=== PATIENT | male | born 1985 | race Caucasian/White ===

== ENCOUNTER 2017-01-17 15:40 | Emergency (ER) | payer OTHER ==
--- NOTE | 2017-01-17 15:45 | PDOC ---
History of Present Illness <Shirin Olivier - Last Filed: 01/17/17 16:58> - General History Source: Patient Exam Limitations: No Limitations - History of Present Illness Presenting Symptoms: Chest Pain Timing/Duration: reports: constant Severity/Quality: reports: mild Location: denies: shoulder, back Chest Pain Radiation: denies: no radiation Activities at Onset: reports: none <Alfredo Kevin - Last Filed: 01/17/17 17:17> - General Chief Complaint: Chest Pain Stated Complaint: CHEST PAIN Time Seen by Provider: 01/17/17 15:45 - History of Present Illness Initial Comments: 01/17/17 15:51 31 y/o male with chest pain while driving today on left side. No back pain, arm pain or neck pain. Patient takes medication for high blood pressure. No family hx of CAD. No fever or chills, no SOB. Chest pain is getting a little better. No fall, lifting or trauma. No diaphoresis. No N/V. Feels a little dizzy as well. (Alfredo Kevin) Past History <Shirin Olivier - Last Filed: 01/17/17 16:58> - Surgical History Abdominal Surgery: Yes (L INGUINAL HERNIA REPAIR) - Psycho/Social/Smoking Cessation Hx Suicidal Ideation: No Smoking History: Current every day smoker Number of Cigarettes Smoked Daily: 6 'Breaking Loose' booklet given: 05/27/16 Hx Alcohol Use: Yes Drug/Substance Use Hx: No Substance Use Type: None <Alfredo Kevin - Last Filed: 01/17/17 17:17> - Past Medical History Allergies/Adverse Reactions: Allergies Allergy/AdvReac Type Severity Reaction Status Date / Time Penicillins Allergy Severe Difficulty Verified 01/17/17 15:42 Breathing Home Medications: Ambulatory Orders Aspirin [Audi Chewable] 81 mg PO ONCE 05/27/16 Lisinopril [Prinivil] 10 mg PO DAILY #30 tablet 05/27/16 Review of Systems - Review of Systems Able to Perform ROS?: Yes Is the patient limited Italian proficient: No Constitutional: No: Chills, Diaphoresis Respiratory: No: Cough, Shortness of Breath Cardiac (ROS): Yes: Chest Pain, Lightheadedness. No: Edema ABD/GI: No: Abdominal Distended, Nausea, Vomiting Musculoskeletal: No: Back Pain, Joint Pain All Other Systems: Reviewed and Negative <Alfredo Kevin - Last Filed: 01/17/17 17:17> *Physical Exam - Physical Exam General Appearance: Yes: Nourished, Appropriately Dressed. No: Apparent Distress HEENT: positive: EOMI, JAZMINE, Normal ENT Inspection Neck: positive: Trachea midline, Supple. negative: Tender Respiratory/Chest: positive: Lungs Clear, Normal Breath Sounds. negative: Chest Tender, Respiratory Distress Cardiovascular: positive: Regular Rhythm, Regular Rate, S1, S2. negative: Edema , JVD, Murmur Vascular Pulses: Femoral (R): 4+, Femoral (L): 4+, Carotid (R): 4+, Carotid (L) : 4+, Dorsalis-Pedis (R): 4+, Doralis-Pedis (L): 4+ Gastrointestinal/Abdominal: positive: Normal Bowel Sounds, Soft. negative: Tender, Organomegaly, Pulsatile Mass Lymphatic: negative: Adenopathy, Tenderness, Other Musculoskeletal: positive: Normal Inspection. negative: CVA Tenderness Extremity: positive: Normal Capillary Refill, Normal Inspection, Normal Range of Motion. negative: Calf Tenderness Integumentary: positive: Normal Color, Dry, Warm Neurologic: positive: strainer tender II-XII NML intact, Fully Oriented, Alert, Normal Mood/ Affect, Normal Response, Motor Strength 5/5 <Alfredo Kevin - Last Filed: 01/17/17 17:17> - Vital Signs Last Vital Signs Temp Pulse Resp BP Pulse Ox 98 F 78 18 143/86 100 01/17/17 15:40 01/17/17 15:40 01/17/17 15:40 01/17/17 15:40 01/17/17 15:40 Heart Score/ECG Review <Shirin Olivier - Last Filed: 01/17/17 16:58> - History History: Slightly suspicious - Electrocardiogram EKG: Normal - Age Age: </= 47 - Risk Factors Risk Factors Heart Score: Yes Hx Hypertension Based on the list above the patient has:: 1-2 risk factors - Troponin Troponin: </= normal limit - Score Heart Score - Total: 1 - ECG Intrepretation Rhythm: Regular Rhythm - Brixey Brixey: Normal - ST and T Non Specific ST-T Wave changes: No - ECG Impressions Normal ECG: Yes Non-specific ST Elevation: No Ischemic Changes: No <Alfredo Kevin - Last Filed: 01/17/17 17:17> - ECG Intrepretation Comment:: 01/17/17 15:55 rate 77 (Alfredo Kevin) - ECG Impressions Comment:: 01/17/17 15:56 No STEMI seen (Alfredo Kevin) ED Treatment Course - LABORATORY CBC & Chemistry Diagram: 01/17/17 16:00 01/17/17 16:00 <Shirin Olivier - Last Filed: 01/17/17 16:58> - LABORATORY CBC & Chemistry Diagram: 01/17/17 16:00 01/17/17 16:00 <Alfredo Kevin - Last Filed: 01/17/17 17:17> - ADDITIONAL ORDERS Additional order review: Laboratory Results 01/17/17 01/17/17 16:00 16:00 Sodium 134 L Potassium 4.1 Chloride 101 Carbon Dioxide 25 Anion Gap 8 BUN 14 Creatinine 0.8 Creat Clearance w eGFR > 60 Random Glucose 96 Calcium 9.3 Total Bilirubin 0.7 AST 30 ALT 43 H D Alkaline Phosphatase 80 Creatine Kinase 378 H CK-MB (CK-2) 2.7 Cancelled CK-MB (CK-2) Rel Index 0.7 Troponin I < 0.03 L Total Protein 6.8 Albumin 4.4 01/17/17 16:00 RBC 5.55 MCV 83.5 MCHC 34.9 RDW 12.0 MPV 9.1 Neutrophils % 56.2 Lymphocytes % 32.4 Monocytes % 7.1 Eosinophils % 2.6 Basophils % 1.7 - RADIOLOGY Radiology Studies Ordered: Category Date Time Status CHEST X-RAY PORTABLE* [RAD] Stat Radiology 01/17/17 15:50 Taken Radiograph Interpretation: 01/17/17 16:58 Chest XR impression read by Dr. Kevin: No acute pathology (Shirin Olivier) - Medications Given in the ED: ED Medications Discontinued Medications Generic Name Dose Route Start Last Admin Trade Name Freq PRN Reason Stop Dose Admin Aspirin 324 mg 01/17/17 15:50 01/17/17 16:00 Asa - PO 01/17/17 15:51 324 mg ONCE ONE Administration Progress Note <Shirin Olivier - Last Filed: 01/17/17 16:58> <Alfredo Kevin - Last Filed: 01/17/17 17:17> - Progress Note Progress Note: CXR NAD EKG NSR no ST-T wave changes noted Pt states that he does not have any chest pain at this time, feeling better, pain free Troponin negative, CPK slightly elevated Upon further questioning pt was doing a lot of lifting and work before driving in car where he expirienced chest pain Pt wishes to go home, risks and benefits explained If worsen will return to ER (Alfredo Kevin) *DC/Admit/Observation/Transfer <Shirin Olivier - Last Filed: 01/17/17 16:58> - Discharge Dispostion Admit: No <Alfredo Kevin - Last Filed: 01/17/17 17:17> Diagnosis at time of Disposition: Atypical chest pain - Discharge Dispostion Disposition: HOME Condition at time of disposition: Stable - Referrals Referrals: Smith Cr MD [Staff Physician] - - Patient Instructions Printed Discharge Instructions: DI for Atypical Chest Pain Additional Instructions: Fluids, rest, Motrin Continue current medications Follow up with Litigation Paralegal If worsening pain in next 12 hrs return to ER - Attestations Scribe Attestion: 01/17/17 16:59 Documentation prepared by Shirin Olivier, acting as director biomedical engineering for Alfredo Kevin DO. (Shirin Olivier)
[2017-01-17] MEDS ORDERED: ASPIRIN 81 MG CHEWABLE TABLETS PO ONE (15:50)
[2017-01-17 15:51] VITALS: TEMP 98; BMI 33.7
[2017-01-17] MEDS ORDERED: ASPIRIN 81 MG CHEWABLE TABLETS ONE (16:02)
[2017-01-17 16:17] LABS: BASOPHIL 1.7 % (0-2.0); EOSINOPHIL 2.6 % (0-4.5); MCH 29.1 pg (25.7-33.7); MCHC 34.9 g/dl (32.0-35.9); MEAN CELL VOLUME 83.5 fl (80-96); MEAN PLT VOLUME 9.1 fl (7.5-11.1); NEUTROPHILS 56.2 % (42.8-82.8); PLATELET COUNT 216 K/MM3 (134-434); WHITE BLOOD COUNT 10.2 K/mm3 (4.0-10.8)
[2017-01-17 16:29] LABS: ALBUMIN 4.4 g/dl (3.5-5.0); ALK PHOS 80 U/L (32-92); ANION GAP 8 (8-16); BILIRUBIN,TOTAL 0.7 mg/dl (0.2-1.0); CALCIUM 9.3 mg/dl (8.4-10.2); CO2 25 mmol/L (22-28); CREATININE 0.8 mg/dl (0.6-1.3); GLUCOSE,RANDOM 96 mg/dl (74-106); SGOT/AST 30 U/L (10-42); SGPT/ALT 43 U/L (10-40); TOT PROT 6.8 g/dl (6.4-8.3)
[2017-01-17 16:30] LABS: CPK(DFH) 378 IU/L (38-174)
[2017-01-17 17:03] LABS: TROPONIN I (DFP) < 0.03 ng/ml (0.03-0.50)
[2017-01-17 17:07] LABS: CK MB 2.7 ng/ml (0.3-4.0)
[2017-01-17 17:31] VITALS: BP 127/84; PULSE 77
--- NOTE | 2017-01-18 14:14 | EKG ---
Test Reason : Blood Pressure : / mmHG Vent. Rate : 077 BPM Atrial Rate : 077 BPM P-R Int : 164 ms QRS Dur : 098 ms QT Int : 364 ms P-R-T Axes : 048 061 018 degrees QTc Int : 411 ms NORMAL SINUS RHYTHM NORMAL ECG NO PREVIOUS ECGS AVAILABLE Confirmed by EMELY MENDOZA MD ([id number]) on 01/18/2017 2:14:09 PM Referred By: FABIO Confirmed By:EMELY MENDOZA MD
== END 2017-01-17 17:25 | disposition home or self-care (01) ==
LOC: FER 15:40
DX: R07.89 Other chest pain (principal); I10 Essential (primary) hypertension; F17.210 Nicotine dependence, cigarettes, uncomplicated
CPT/HCPCS: 36415; 71010-TC; 80053; 82550; 82553; 84484; 85025; 93005; 99285-25

== ENCOUNTER 2017-10-09 14:03 | Emergency (ER) | payer OTHER ==
[2017-10-09 14:08] VITALS: TEMP 98.7; BMI 33.3
--- NOTE | 2017-10-09 14:20 | PDOC ---
History of Present Illness - General History Source: Patient Exam Limitations: No Limitations - History of Present Illness Initial Comments: 10/09/17 14:37 The patient is a 32 year old male with a significant past medical history of arthritis who presents to the ED with complaints of knee pain for 2 weeks. The patient reports he felt the back of his right knee tense up 2 weeks ago. He states he went to urgent care yesterday and was given pain medication with relief of his back of the knee pain. Patient states the pain in the back of his knee is now resolved but he developed pain to the front of his knee secondary to going up a flight of stairs yesterday evening. He states the pain in front of his right knee is worsened when walking. He also reports swelling and warmth to his right knee. Denies fever or chill. Denies focal numbness, weakness, or tingling. Denies any other symptoms. <Ortiz Alvarez - Last Filed: 10/09/17 14:37> <Denise Dyer - Last Filed: 10/10/17 08:11> - General Chief Complaint: Pain, Acute Stated Complaint: RIGHT KNEE PAIN Time Seen by Provider: 10/09/17 14:19 Past History <Ortiz Alvarez - Last Filed: 10/09/17 14:37> - Past Medical History COPD: No HTN: Yes - Surgical History Abdominal Surgery: Yes (L INGUINAL HERNIA REPAIR) - Suicide/Smoking/Psychosocial Hx Smoking History: Former smoker Have you smoked in the past 12 months: No Number of Cigarettes Smoked Daily: 6 If you are a former smoker, when did you quit?: 8 Information on smoking cessation initiated: No 'Breaking Loose' booklet given: 01/17/17 Hx Alcohol Use: No Drug/Substance Use Hx: No Substance Use Type: None <Denise Dyer - Last Filed: 10/10/17 08:11> - Past Medical History Allergies/Adverse Reactions: Allergies Allergy/AdvReac Type Severity Reaction Status Date / Time Penicillins Allergy Severe Difficulty Verified 10/09/17 14:04 Breathing Home Medications: Ambulatory Orders NK [No Known Home Medication] 10/09/17 Review of Systems - Review of Systems Able to Perform ROS?: Yes Comments:: 10/09/17 14:38 GENERAL/CONSTITUTIONAL: No fever or chills. No weakness. MUSCULOSKELETAL: + knee pain, knee swelling, warmth to the knee. No neck or back pain. SKIN: No rash All Other Systems: Reviewed and Negative <Ortiz Alvarez - Last Filed: 10/09/17 14:37> *Physical Exam - Vital Signs Last Vital Signs Temp Pulse Resp BP Pulse Ox 98.7 F 79 15 158/99 100 10/09/17 14:04 10/09/17 14:04 10/09/17 14:04 10/09/17 14:04 10/09/17 14:04 <Ortiz Alvarez - Last Filed: 10/09/17 14:37> - Vital Signs Last Vital Signs Temp Pulse Resp BP Pulse Ox 98.7 F 79 15 158/99 100 10/09/17 14:04 10/09/17 14:04 10/09/17 14:04 10/09/17 14:04 10/09/17 14:04 - Physical Exam Comments: GENERAL: Awake, alert, and fully oriented, in no acute distress HEAD: No signs of trauma EYES: PERRLA, EOMI, sclera anicteric, conjunctiva clear EXTREMITIES: R knee with full active ROM. +Mod joint effusion R knee. No warmth , no erythema. Slight pain on Ferdinand's test. Anterior and posterior drawer signs negative. Remainder of extremities with normal range of motion, no edema. No clubbing or cyanosis. No cords, erythema, or tenderness NEUROLOGICAL: Cranial nerves II through XII grossly intact. Normal speech, normal gait SKIN: Warm, Dry, normal turgor, no rashes or lesions noted. <Denise Dyer - Last Filed: 10/10/17 08:11> Medical Decision Making - Medical Decision Making XR reviewed, no acute findings. Suspect meniscus injury, given the effusion and slight pain with Ferdinand test. He has been able to walk with PAULA wrap on his knee, will not place on crutches. Continue NSAIDs, f/u with ortho. <Denise Dyer - Last Filed: 10/10/17 08:11> *DC/Admit/Observation/Transfer - Attestations Scribe Attestion: 10/09/17 14:38 Documentation prepared by Ortiz Alvarez, acting as medical claims assistant for Denise Dyer MD <Ortiz Alvarez - Last Filed: 10/09/17 14:37> - Discharge Dispostion Admit: No <Denise Dyer - Last Filed: 10/10/17 08:11> Diagnosis at time of Disposition: Knee pain Qualifiers: Chronicity: acute Laterality: right Qualified Code(s): M25.561 - Pain in right knee - Discharge Dispostion Disposition: HOME Condition at time of disposition: Stable - Patient Instructions Printed Discharge Instructions: DI for Knee Effusion, DI for Knee Pain
[2017-10-09 15:56] VITALS: BP 143/90; PULSE 73
== END 2017-10-09 15:56 | disposition home or self-care (01) ==
LOC: FER 14:03
DX: M25.561 Pain in right knee (principal); Z87.891 Personal history of nicotine dependence; M19.90 Unspecified osteoarthritis, unspecified site
CPT/HCPCS: 73562-TC-RT-FY; 99282-25

== ENCOUNTER 2017-12-22 20:50 | Emergency (ER) | payer OTHER ==
[2017-12-22 21:03] VITALS: BP 155/102; PULSE 97; TEMP 99.1; BMI 34.7
--- NOTE | 2017-12-22 21:04 | PDOC ---
Rapid Medical Evaluation Chief Complaint: Pain Time Seen by Provider: 12/22/17 20:58 Medical Evaluation: Allergies Allergy/AdvReac Type Severity Reaction Status Date / Time Penicillins Allergy Severe Difficulty Verified 10/09/17 14:04 Breathing history of arthritis , HTN and psoriasis c/o generalized joint pain and chest pain x2 days. O: patient alert ox3, breath sounds clear, regular rate A: pain P: cbc, cmp, cardiac , ESR crp patient to the ER for for further management
[2017-12-22 21:25] LABS: BASO % 0.7 % (0-2.0); EOS % 1.8 % (0-4.5); HEMATOCRIT 44.8 % (35.4-49); LYMPH % 24.7 % (8-40); MCH 26.5 pg (25.7-33.7); MCHC 33.6 g/dl (32.0-35.9); MEAN CELL VOLUME 78.9 fl (80-96); MEAN PLT VOLUME 8.2 fl (7.5-11.1); NEUT % 64.8 % (42.8-82.8); PLATELET COUNT 345 K/MM3 (134-434); RBC 5.68 M/mm3 (4.00-5.60); RDW 14.2 % (11.9-15.9); WHITE BLOOD COUNT 11.9 K/mm3 (4.0-10.0)
[2017-12-22 22:15] LABS: ALBUMIN 3.9 g/dl (3.4-5.0); ANION GAP 7 (8-16); CHLORIDE 104 mmol/L (98-107); CO2 28 mmol/L (21-32); CREATININE 0.9 mg/dL (0.7-1.3); GLUCOSE,RANDOM 112 mg/dL (74-106); POTASSIUM 4.2 mmol/L (3.5-5.1); SGOT/AST 18 U/L (15-37); SGPT/ALT 39 U/L (12-78); SODIUM 139 mmol/L (136-145)
[2017-12-22 22:18] LABS: ALK PHOS 128 U/L (45-117); BILIRUBIN,TOTAL 0.5 mg/dL (0.2-1.0); BLOOD UREA NITROGEN 13 mg/dL (7-18); TOT PROT 7.9 g/dl (6.4-8.2)
--- NOTE | 2017-12-22 22:36 | PDOC ---
History of Present Illness - General History Source: Patient Exam Limitations: No Limitations - History of Present Illness Initial Comments: 12/22/17 23:17 The patient is a 32 year old male, with a significant past medical history of arthritis, who presents to the emergency department with, generalized body aches worsening on the bilateral calves and just above the bilateral backs of knees. 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 He was suggested Aleve for his pain, without relief. He [place] going to his [place] and was prescribed Diclofenac, with some relief. He reports his pain to sometimes begin in his lower back and radiates down to his legs. He reports pain while getting up from the seated position. He denies any recent fevers, chills, headache or dizziness. He denies any recent nausea, vomit, diarrhea or constipation. He denies any recent chest pain or shortness of breath. He denies any recent dysuria, frequency, urgency or hematuria. Allergies: NKA Social History: Nonsmoker. Denies EtOH use and recreational drug use. <Mario Barrientos - Last Filed: 12/22/17 23:20> - General History Source: Patient <BenAbdiaziz lockwood - Last Filed: 12/22/17 23:40> - General Chief Complaint: Pain Stated Complaint: PAIN Time Seen by Provider: 12/22/17 20:58 Past History <Mario Barrientos - Last Filed: 12/22/17 23:20> - Past Medical History COPD: No HTN: Yes - Surgical History Abdominal Surgery: Yes (L INGUINAL HERNIA REPAIR) - Suicide/Smoking/Psychosocial Hx Smoking History: Former smoker Have you smoked in the past 12 months: No Number of Cigarettes Smoked Daily: 6 If you are a former smoker, when did you quit?: 8 Information on smoking cessation initiated: No 'Breaking Loose' booklet given: 01/17/17 Hx Alcohol Use: No Drug/Substance Use Hx: No Substance Use Type: None <Abdiaziz Castro - Last Filed: 12/22/17 23:40> - Past Medical History Allergies/Adverse Reactions: Allergies Allergy/AdvReac Type Severity Reaction Status Date / Time Penicillins Allergy Severe Difficulty Verified 12/22/17 21:05 Breathing Home Medications: Ambulatory Orders Tramadol HCl [Ultram] 50 mg PO TID #30 tablet MDD 4 12/22/17 Review of Systems - Review of Systems Able to Perform ROS?: Yes Comments:: 12/22/17 23:18 CONSTITUTIONAL: Present: Generalized weakness. Absent: fever, no chills EYES: Absent: visual changes ENT: Absent: ear pain, no sore throat CARDIOVASCULAR: Absent: chest pain, no palpitations RESPIRATORY: Absent: cough, no SOB GI: Absent: abdominal pain, no nausea, no vomiting, no constipation, no diarrhea GENITOURINARY: Absent: dysuria, no frequency, no hematuria MUSKULOSKELETAL: Present: Pain in the back of his calves. Pain in the lower back. Absent: back pain, no arthralgia, no myalgia SKIN: Absent: rash NEURO: Absent: headache All Other Systems: Reviewed and Negative <Mario Barrientos - Last Filed: 12/22/17 23:20> *Physical Exam - Vital Signs Last Vital Signs Temp Pulse Resp BP Pulse Ox 99.1 F 97 H 17 155/102 99 12/22/17 20:59 12/22/17 20:59 12/22/17 20:59 12/22/17 20:59 12/22/17 20:59 - Physical Exam Comments: 12/22/17 23:20 GENERAL: Well-appearing, well-nourished. No apparent distress. HEENT: Normocephalic, atraumatic. PERRL, EOM intact. CARDIOVASCULAR: Normal S1, S2. Regular rate and rhythm. PULMONARY: Clear to auscultation bilaterally. ABDOMEN: Soft, non-distended, non-tender. EXTREMITIES: Normal ROM in all four extremities. No gross deformities. SKIN: Warm, dry. No rash NEUROLOGICAL: No focal neurological deficits. <Mario Barrientos - Last Filed: 12/22/17 23:20> - Vital Signs Last Vital Signs Temp Pulse Resp BP Pulse Ox 99.1 F 97 H 17 155/102 99 12/22/17 20:59 12/22/17 20:59 12/22/17 20:59 12/22/17 20:59 12/22/17 20:59 <Abdiaziz Castro - Last Filed: 12/22/17 23:40> ED Treatment Course - LABORATORY CBC & Chemistry Diagram: 12/22/17 21:14 12/22/17 21:14 - ADDITIONAL ORDERS Additional order review: Laboratory Results 12/22/17 12/22/17 21:14 21:14 Sodium 139 Potassium 4.2 Chloride 104 Carbon Dioxide 28 Anion Gap 7 L BUN 13 Creatinine 0.9 Creat Clearance w eGFR > 60 Random Glucose 112 H Calcium 9.0 Total Bilirubin 0.5 AST 18 ALT 39 Alkaline Phosphatase 128 H Creatine Kinase 187 Creatine Kinase Index 0.5 CK-MB (CK-2) < 1.000 Troponin I < 0.02 C-Reactive Protein 2.1 H Total Protein 7.9 Albumin 3.9 12/22/17 21:14 RBC 5.68 H MCV 78.9 L MCHC 33.6 RDW 14.2 MPV 8.2 Neutrophils % 64.8 Lymphocytes % 24.7 Monocytes % 8.0 Eosinophils % 1.8 Basophils % 0.7 <Mario Barrientos - Last Filed: 12/22/17 23:20> - LABORATORY CBC & Chemistry Diagram: 12/22/17 21:14 12/22/17 21:14 - ADDITIONAL ORDERS Additional order review: Laboratory Results 12/22/17 12/22/17 21:14 21:14 Sodium 139 Potassium 4.2 Chloride 104 Carbon Dioxide 28 Anion Gap 7 L BUN 13 Creatinine 0.9 Creat Clearance w eGFR > 60 Random Glucose 112 H Calcium 9.0 Total Bilirubin 0.5 AST 18 ALT 39 Alkaline Phosphatase 128 H Creatine Kinase 187 Troponin I < 0.02 C-Reactive Protein 2.1 H Total Protein 7.9 Albumin 3.9 12/22/17 21:14 RBC 5.68 H MCV 78.9 L MCHC 33.6 RDW 14.2 MPV 8.2 Neutrophils % 64.8 Lymphocytes % 24.7 Monocytes % 8.0 Eosinophils % 1.8 Basophils % 0.7 <Abdiaziz Castro - Last Filed: 12/22/17 23:40> Medical Decision Making - Medical Decision Making 12/22/17 22:59 EKG performed at: 22 Dec 2017 at 21:13:37 Vent Rate 90 bpm NH interval 158 ms QRS duration 100 ms QT/QTc 332/406 ms P-R-T axes 54 60 15 Normal sinus rhythm. Normal ECG. <Mario Barrientos - Last Filed: 12/22/17 23:20> *DC/Admit/Observation/Transfer - Attestations Scribe Attestion: 12/22/17 23:02 Documentation prepared by Mario Barrientos, acting as medical cash poster for Abdiaziz Castro DO. <Mario Barrientos - Last Filed: 12/22/17 23:20> <Abdiaziz Castro - Last Filed: 12/22/17 23:40> Diagnosis at time of Disposition: Leg pain, bilateral - Discharge Dispostion Disposition: HOME - Prescriptions Prescriptions: Tramadol HCl [Ultram] 50 mg PO TID #30 tablet MDD 4 - Referrals Referrals: ON STAFF,NOT [Primary Care Provider] - John Addison MD [Staff Physician] - - Patient Instructions Printed Discharge Instructions: DI for Leg Pain Additional Instructions: Please follow up with your doctor as soon as possible. take medication as directed. Return if any problems - Post Discharge Activity
[2017-12-22 23:14] LABS: ERYTHROCYTE SEDIMENTATION RATE 23 mm/hr (0-10)
--- NOTE | 2017-12-23 09:33 | EKG ---
Test Reason : Blood Pressure : / mmHG Vent. Rate : 090 BPM Atrial Rate : 090 BPM P-R Int : 158 ms QRS Dur : 100 ms QT Int : 332 ms P-R-T Axes : 054 060 015 degrees QTc Int : 406 ms NORMAL SINUS RHYTHM NON-SPECIFIC INTRA-VENTRICULAR CONDUCTION DELAY WHEN COMPARED WITH ECG OF 17-JAN-2017 15:46, NO SIGNIFICANT CHANGE WAS FOUND Confirmed by FLAQUITA LINARES MD ([id number]) on 12/23/2017 9:33:16 AM Referred By: Confirmed By:FLAQUITA LINARES MD
== END 2017-12-22 23:50 | disposition home or self-care (01) ==
LOC: JER 20:50
DX: M79.604 Pain in right leg (principal); M79.605 Pain in left leg
CPT/HCPCS: 36415; 71046-TC-FY; 80053; 82550; 82553; 84484; 85025; 85651; 86140; 93005; 93010; 93970-TC; 99282-25

== ENCOUNTER 2018-09-02 12:20 | Inpatient (IN) | payer SELFPAY ==
[2018-09-02] MEDS ORDERED: SODIUM CHLORIDE 0.9% 1000 ML INFUS.BAG IV ONE ×2 (12:37→14:04)
[2018-09-02 12:45] VITALS: BMI 33.9
[2018-09-02 12:52] LABS: URINE APPEARANCE Clear; URINE BILIRUBIN 1+ (NEGATIVE); URINE COLOR Amber; URINE GLUCOSE (UA) 2+ (NEGATIVE); URINE KETONE 4+ (NEGATIVE); URINE LEUK ESTERASE Negative (NEGATIVE); URINE NITRITE Negative (NEGATIVE); URINE PROTEIN 2+ (NEGATIVE); URINE UROBILINOGEN 0.2 (0.2-1.0)
[2018-09-02] MEDS ORDERED: HEMOQUE TEST 1 EACH EACH ONE ×2 (12:56→14:13)
[2018-09-02 12:57] LABS: URINE WBC 0-2 (0-2)
[2018-09-02 13:16] LABS: BASO % 1.1 % (0-2.0); HEMATOCRIT 49.6 % (35.4-49); HEMOGLOBIN 16.4 GM/dl (11.7-16.9); LYMPH % 28.7 % (8-40); MCH 26.9 pg (25.7-33.7); MEAN CELL VOLUME 81.3 fl (80-96); MEAN PLT VOLUME 9.3 fl (7.5-11.1); MONO % 7.3 % (3.8-10.2); NEUT % 59.9 % (42.8-82.8); PLATELET COUNT 256 K/MM3 (134-434); RDW 13.9 % (11.9-15.9); WHITE BLOOD COUNT 7.3 K/mm3 (4.0-10.8)
[2018-09-02 13:29] LABS: ALBUMIN 4.1 g/dl (3.5-5.0); ALK PHOS 143 U/L (32-92); ANION GAP 12 MMOL/L (8-16); BILIRUBIN,TOTAL 0.8 mg/dl (0.2-1.0); BLOOD UREA NITROGEN 13 mg/dl (7-18); CALCIUM 9.6 mg/dl (8.4-10.2); CHLORIDE 95 mmol/L (98-107); CO2 21 mmol/L (22-28); CREATININE 0.9 mg/dl (0.6-1.3); POTASSIUM 4.7 mmol/L (3.5-5.1); SGOT/AST 50 U/L (10-42); SGPT/ALT 82 U/L (10-40); SODIUM 128 mmol/L (136-145); TOT PROT 7.2 g/dl (6.4-8.3)
[2018-09-02 13:38] LABS: GLUCOSE,RANDOM 388 mg/dl (74-106)
--- NOTE | 2018-09-02 13:38 | PDOC ---
History of Present Illness - General Chief Complaint: Blood Sugar Problem Stated Complaint: ELEVATED SUGAR Time Seen by Provider: 09/02/18 12:24 History Source: Patient Exam Limitations: No Limitations - History of Present Illness Initial Comments: 09/02/18 13:35 33-year-old male history of prediabetes here today recently arriving from [facility] where he was for 1 month stating he sugar has been high. Patient states [facility] at that time noticed that he was having some blurry vision polydipsia and polyuria. Patient denies any fevers or chills he was evaluated by a doctor there who stated he sugar was in the 400 range. Patient was suggested to be admitted to the hospital however he had to fly back to [place] today he was given 2 L of fluid and some insulin at the time of his presentation there. Since that time he has not taken any medication denies any fevers or chills does feel some mild nausea still has increased thirst urination and blurry vision. Patient was told that he may have a urinary tract infection in addition does have a family history of diabetes in his father 09/02/18 13:50 09/02/18 13:51 Past History - Past Medical History Allergies/Adverse Reactions: Allergies Allergy/AdvReac Type Severity Reaction Status Date / Time Penicillins Allergy Severe Difficulty Verified 09/02/18 12:41 Breathing Home Medications: Ambulatory Orders NK [No Known Home Medication] 09/02/18 COPD: No Diabetes: Yes HTN: Yes Hypercholesterolemia: Yes - Surgical History Abdominal Surgery: Yes (L INGUINAL HERNIA REPAIR) - Suicide/Smoking/Psychosocial Hx Smoking History: Never smoked Have you smoked in the past 12 months: No Number of Cigarettes Smoked Daily: 6 If you are a former smoker, when did you quit?: 8 Information on smoking cessation initiated: No 'Breaking Loose' booklet given: 01/17/17 Hx Alcohol Use: No Drug/Substance Use Hx: No Substance Use Type: None Review of Systems - Review of Systems Constitutional: No: Chills, Diaphoresis HEENTM: Yes: Blurred Vision Respiratory: No: Cough, Orthopnea Cardiac (ROS): No: Chest Pain ABD/GI: Yes: Nausea. No: Abdominal Distended : No: Burning, Dysuria Endocrine: Yes: Increased Thirst, Increased Urine All Other Systems: Reviewed and Negative *Physical Exam - Vital Signs Last Vital Signs Temp Pulse Resp BP Pulse Ox 98.8 F 102 H 18 145/96 100 09/02/18 12:43 09/02/18 12:43 09/02/18 12:43 09/02/18 12:43 09/02/18 12:43 - Physical Exam Comments: 09/02/18 13:37 Awake alert no acute distress patient has dry mucous membranes lungs are clear bilaterally heart is regular without any murmurs rubs or gallops abdomen is soft and nontender extremities are warm and well-perfused no edema skin is warm and dry no rash neurologically the patient is alert oriented 3 speech is clear Moderate Sedation - Procedure Monitoring Vital Signs: Procedure Monitoring Vital Signs Temperature 98.8 F 09/02/18 12:43 Pulse Rate 102 H 09/02/18 12:43 Respiratory Rate 18 09/02/18 12:43 Blood Pressure 145/96 09/02/18 12:43 O2 Sat by Pulse Oximetry (%) 100 09/02/18 12:43 Heart Score/ECG Review #1 General ECG Interpretation: Sinus Rhythm, Normal Rate (73), Normal Intervals, No acute ischemic changes Compared to previous ECG there are: Other (TWI III only) ED Treatment Course - LABORATORY CBC & Chemistry Diagram: 09/02/18 13:05 09/02/18 13:05 - ADDITIONAL ORDERS Additional order review: Laboratory Results 09/02/18 09/02/18 13:01 12:45 POC Glucometer > 400 Urine Color Eleanor Urine Appearance Clear Urine pH 6.0 Ur Specific [place] 1.020 Urine Protein 2+ H Urine Glucose (UA) 2+ H Urine Ketones 4+ H Urine Blood 1+ H Urine Nitrite Negative Urine Bilirubin 1+ H Urine Urobilinogen 0.2 Ur Leukocyte Esterase Negative Urine RBC 2-5 Urine WBC 0-2 09/02/18 09/02/18 13:05 13:01 RBC 6.10 H MCV 81.3 MCHC 33.0 RDW 13.9 D MPV 9.3 Neutrophils % 59.9 Lymphocytes % 28.7 Monocytes % 7.3 Eosinophils % 3.0 Basophils % 1.1 POC Glucometer > 400 - RADIOLOGY Radiology Studies Ordered: Category Date Time Status CHEST PA & LAT [RAD] Stat Radiology 09/02/18 12:37 Completed - Medications Given in the ED: ED Medications Discontinued Medications Generic Name Dose Route Start Last Admin Trade Name Denisse PRN Reason Stop Dose Admin Sodium Chloride 1,000 ml 09/02/18 12:37 09/02/18 13:10 Normal Saline - IV 09/02/18 12:38 1,000 ml ONCE ONE Administration Medical Decision Making - Medical Decision Making 09/02/18 13:37 33-year-old with recent diagnosis of diabetes 2 days ago here with persistent symptoms of hyperglycemia differential includes hyperglycemia hyperosmolar hyperglycemic syndrome DKA inciting infection such as UTI or pneumonia plan IV hydration CBC CMP is VBG acetone UA and chest x-ray due to the fact the patient has no follow-up this is a new diagnosis he will likely require admission under observation for glucose control diabetic teaching and education initiation of glucose management regimen *DC/Admit/Observation/Transfer Diagnosis at time of Disposition: Hyperglycemia, Diabetes mellitus - Discharge Dispostion Decision to Admit order: Yes - Referrals - Patient Instructions - Post Discharge Activity
[2018-09-02 13:39] LABS: ACETONE SERUM NEGATIVE (NEGATIVE)
[2018-09-02 14:19] LABS: VENOUS PH 7.3 (7.32-7.42)
[2018-09-02 14:20] LABS: VENOUS PO2 30.4 mmHg (28-48)
[2018-09-02 15:10] LABS: ANION GAP 9 MMOL/L (8-16); BLOOD UREA NITROGEN 12 mg/dl (7-18); CALCIUM 8.4 mg/dl (8.4-10.2); CHLORIDE 100 mmol/L (98-107); CO2 20 mmol/L (22-28); CREATININE 0.9 mg/dl (0.6-1.3); POTASSIUM 4.1 mmol/L (3.5-5.1); SODIUM 129 mmol/L (136-145)
[2018-09-02 15:20] LABS: GLUCOSE,RANDOM 314 mg/dl (74-106)
[2018-09-02] MEDS ORDERED: INSULIN REGULAR HUMAN 100 UNITS/ML *VIAL IVPUSH ONE (15:22)
[2018-09-02] MEDS ORDERED: INSULIN REGULAR HUMAN 100 UNITS/ML *VIAL ONE (15:43)
--- NOTE | 2018-09-02 15:53 | HP ---
CHIEF COMPLAINT: Hyperglycemia PCP: None HISTORY OF PRESENT ILLNESS: 33 year-old male with a PMH significant for HTN and arthritis. Recently arrived from [facility] where he was for 1 month. While in [facility] patient experienced symptoms of blurry vision, polydipsia, and polyuria x 2 weeks. He was evaluated by a doctor in [facility] yesterday who said his sugar was in the 400 range. It was suggested patient fly back to [place] and go to directly to the hospital. Patient denies fevers, sweats, chills. He has some nausea, no vomiting. No diarrhea. He continues to have increased thirst, urination, and blurry vision. ER course was notable for: (1) Glucose 388; Na 133 corrected (2) UA: 2+ protein, 2+ glucose, 4+ ketones (3) Serum acetone negative (4) NS x 2L; Novolog 6U x 1; AG 12-->9 Recent Travel: From [facility] PAST MEDICAL HISTORY: Hypertension Hyperlipidemia Psoriasis PAST SURGICAL HISTORY: Left inguinal hernia repair x 15 years Social History: lives with in [place], no children, does construction, welding Smoking: quit 1 year ago Alcohol: stopped drinking 08/22/18; before that 6-7 beers per day Drugs: no Family History: Father 67 complications from DM; nephew age 7 with Type I DM; mother alive HTN; sister with gestational diabetes; other brothers and sisters a&w Allergies Penicillins Allergy (Severe, Verified 09/02/18 12:41) Difficulty Breathing HOME MEDICATIONS: Home Medications Medication Instructions Recorded NK [No Known Home Medication] 09/02/18 REVIEW OF SYSTEMS CONSTITUTIONAL: Absent: fever, chills, diaphoresis, generalized weakness, malaise, loss of appetite, weight change HEENT: Absent: rhinorrhea, nasal congestion, throat pain, throat swelling, difficulty swallowing, mouth swelling, ear pain, eye pain, visual changes CARDIOVASCULAR: Absent: chest pain, syncope, palpitations, irregular heart rate, lightheadedness , peripheral edema RESPIRATORY: Absent: cough, shortness of breath, dyspnea with exertion, orthopnea, wheezing, stridor, hemoptysis GASTROINTESTINAL: Absent: abdominal pain, abdominal distension, nausea, vomiting, diarrhea, constipation, melena, hematochezia GENITOURINARY: Absent: dysuria, frequency, urgency, hesitancy, hematuria, flank pain, genital pain MUSCULOSKELETAL: Absent: myalgia, arthralgia, joint swelling, back pain, neck pain SKIN: Absent: rash, itching, pallor HEMATOLOGIC/IMMUNOLOGIC: Absent: easy bleeding, easy bruising, lymphadenopathy, frequent infections ENDOCRINE: +polyuria, polydipsia, blurry vision Absent: unexplained weight gain, unexplained weight loss, heat intolerance, cold intolerance NEUROLOGIC: Absent: headache, focal weakness or paresthesias, dizziness, unsteady gait, seizure, mental status changes, bladder or bowel incontinence PSYCHIATRIC: Absent: anxiety, depression, suicidal or homicidal ideation, hallucinations. PHYSICAL EXAMINATION Vital Signs - 24 hr 09/02/18 09/02/18 12:43 13:57 Temperature 98.8 F Pulse Rate 102 H Respiratory 18 Rate Blood Pressure 145/96 O2 Sat by Pulse 100 100 Oximetry (%) GENERAL: Awake, alert, and fully oriented, in no acute distress. HEAD: Normal with no signs of trauma. EYES: Pupils equal, round and reactive to light, extraocular movements intact, sclera anicteric, conjunctiva clear. No lid lag. EARS, NOSE, THROAT: Ears normal, nares patent, oropharynx clear without exudates. Dry mucous membranes NECK: Normal range of motion, supple without lymphadenopathy, JVD, or masses. LUNGS: Breath sounds equal, clear to auscultation bilaterally. No wheezes, and no crackles. No accessory muscle use. HEART: Regular rate and rhythm, normal S1 and S2 without murmur, rub or gallop. ABDOMEN: Soft, nontender, not distended, normoactive bowel sounds, no guarding, no rebound MUSCULOSKELETAL: Normal range of motion at all joints. No bony deformities or tenderness. No CVA tenderness. UPPER EXTREMITIES: 2+ pulses, warm, well-perfused. No cyanosis. No clubbing. No peripheral edema. LOWER EXTREMITIES: 2+ pulses, warm, well-perfused. No calf tenderness. No peripheral edema. Darkened, dessicated toenail left hallux NEUROLOGICAL: Cranial nerves II-XII intact. Normal speech. Laboratory Results - last 24 hr 09/02/18 09/02/18 09/02/18 12:45 13:01 13:05 WBC 7.3 RBC 6.10 H Hgb 16.4 Hct 49.6 H MCV 81.3 MCH 26.9 MCHC 33.0 RDW 13.9 D Plt Count 256 MPV 9.3 Absolute Neuts (auto) 4.4 Neutrophils % 59.9 Lymphocytes % 28.7 Monocytes % 7.3 Eosinophils % 3.0 Basophils % 1.1 VBG pH POC VBG pCO2 POC VBG pO2 Mixed VBG HCO3 Sodium Potassium Chloride Carbon Dioxide Anion Gap BUN Creatinine Creat Clearance w eGFR POC Glucometer > 400 Random Glucose Calcium Total Bilirubin AST ALT Alkaline Phosphatase Total Protein Albumin Urine Color Eleanor Urine Appearance Clear Urine pH 6.0 Ur Specific [place] 1.020 Urine Protein 2+ H Urine Glucose (UA) 2+ H Urine Ketones 4+ H Urine Blood 1+ H Urine Nitrite Negative Urine Bilirubin 1+ H Urine Urobilinogen 0.2 Ur Leukocyte Esterase Negative Urine RBC 2-5 Urine WBC 0-2 Acetone, Qual 09/02/18 09/02/18 09/02/18 13:05 13:05 14:16 WBC RBC Hgb Hct MCV MCH MCHC RDW Plt Count MPV Absolute Neuts (auto) Neutrophils % Lymphocytes % Monocytes % Eosinophils % Basophils % VBG pH 7.30 L POC VBG pCO2 44.0 POC VBG pO2 30.4 Mixed VBG HCO3 21.5 Sodium 128 L Potassium 4.7 Chloride 95 L Carbon Dioxide 21 L Anion Gap 12 BUN 13 Creatinine 0.9 Creat Clearance w eGFR > 60 POC Glucometer [phone] Random Glucose 388 H* D Calcium 9.6 Total Bilirubin 0.8 AST 50 H D ALT 82 H D Alkaline Phosphatase 143 H Total Protein 7.2 Albumin 4.1 Urine Color Urine Appearance Urine pH Ur Specific [place] Urine Protein Urine Glucose (UA) Urine Ketones Urine Blood Urine Nitrite Urine Bilirubin Urine Urobilinogen Ur Leukocyte Esterase Urine RBC Urine WBC Acetone, Qual Negative 09/02/18 14:48 WBC RBC Hgb Hct MCV MCH MCHC RDW Plt Count MPV Absolute Neuts (auto) Neutrophils % Lymphocytes % Monocytes % Eosinophils % Basophils % VBG pH POC VBG pCO2 POC VBG pO2 Mixed VBG HCO3 Sodium 129 L Potassium 4.1 Chloride 100 Carbon Dioxide 20 L Anion Gap 9 BUN 12 Creatinine 0.9 Creat Clearance w eGFR > 60 POC Glucometer Random Glucose 314 H* Calcium 8.4 Total Bilirubin AST ALT Alkaline Phosphatase Total Protein Albumin Urine Color Urine Appearance Urine pH Ur Specific [place] Urine Protein Urine Glucose (UA) Urine Ketones Urine Blood Urine Nitrite Urine Bilirubin Urine Urobilinogen Ur Leukocyte Esterase Urine RBC Urine WBC Acetone, Qual ASSESSMENT/PLAN: 33 year-old male with a PMH significant for HTN and arthritis. Admitted for newly diagnosed Type II diabetes. Newly diagnosed Type II diabetes --HgbA1C 9.9; symptomatic x 2 weeks: polydipsia, polyuria, blurry vision --AG 9, serum acetone negative --Novolog sliding scale coverage --continue IV fluids --fingersticks ACHS --endocrine consult --nutrition consult/diabetic teaching --bmp, Mg q4h Hypertension --start lisinopril 10mg Psoriasis --at one time last year was on Katheryn, but stopped taking because lost insurance --needs outpatient followup Onychomycosis --podiatry consult FEN Fluids: NS@100mL/hr Electrolytes: replete as indicated Nutrition: diabetic diet DVT prophylaxis: subq lovenox Dispo: continues to require inpatient care. Full code. Visit type - Emergency Visit Emergency Visit: Yes Care time: The patient presented to the Emergency Department on the above date and was hospitalized for further evaluation of their emergent condition. - New Patient This patient is new to me today: Yes Date on this admission: 09/02/18 - Critical Care Critical Care patient: No
[2018-09-02] MEDS: SODIUM CHLORIDE 1,000 ML IV SCH (17:00)
[2018-09-02] MEDS: LISINOPRIL 10 MG TABLET (FP) PO SCH (18:32)
[2018-09-02 20:37] LABS: ANION GAP 9 MMOL/L (8-16); BLOOD UREA NITROGEN 12 mg/dl (7-18); CALCIUM 8.6 mg/dl (8.4-10.2); CHLORIDE 100 mmol/L (98-107); CO2 20 mmol/L (22-28); CREATININE 0.8 mg/dl (0.6-1.3); MAGNESIUM 1.7 mg/dL (1.8-2.4); SODIUM 129 mmol/L (136-145)
[2018-09-02 20:39] LABS: GLUCOSE,RANDOM 316 mg/dl (74-106)
[2018-09-02] MEDS ORDERED: MAGNESIUM SULF 50% (8.12 MEQ/2 ML-1 GM VIAL) IVPB ONE (20:51)
[2018-09-02] MEDS: INSULIN SLIDING SCALE (NOVOLOG) 1 VIAL SQ SCH (21:18)
[2018-09-03] MEDS: INSULIN SLIDING SCALE (NOVOLOG) 1 VIAL SQ SCH ×3 (06:39→17:03)
[2018-09-03 09:28] LABS: RBC 5.03 M/mm3 (4.00-5.60)
[2018-09-03 09:36] LABS: ALBUMIN 3.1 g/dl (3.5-5.0); ALK PHOS 102 U/L (32-92); ANION GAP 10 MMOL/L (8-16); BILIRUBIN,TOTAL 0.6 mg/dl (0.2-1.0); BLOOD UREA NITROGEN 13 mg/dl (7-18); CALCIUM 8.3 mg/dl (8.4-10.2); CHLORIDE 104 mmol/L (98-107); CO2 20 mmol/L (22-28); CREATININE 0.7 mg/dl (0.6-1.3); GLUCOSE,RANDOM 254 mg/dl (74-106); MAGNESIUM 1.8 mg/dL (1.8-2.4); PHOSPHOROUS 3.3 mg/dl (2.5-4.6); POTASSIUM 3.7 mmol/L (3.5-5.1); SGOT/AST 41 U/L (10-42); SGPT/ALT 70 U/L (10-40); SODIUM 134 mmol/L (136-145); TOT PROT 5.5 g/dl (6.4-8.3)
[2018-09-03 09:45] LABS: WHITE BLOOD COUNT 6.4 K/mm3 (4.0-10.8)
[2018-09-03 09:46] LABS: HEMATOCRIT 41.2 % (35.4-49); HEMOGLOBIN 13.7 GM/dl (11.7-16.9); MCH 27.1 pg (25.7-33.7); MCHC 33.2 g/dl (32.0-35.9); MEAN CELL VOLUME 81.8 fl (80-96); MEAN PLT VOLUME 9.8 fl (7.5-11.1); NEUT % 59.8 % (42.8-82.8); PLATELET COUNT 183 K/MM3 (134-434); RDW 13.5 % (11.9-15.9)
[2018-09-03 09:47] LABS: BASO % 0.5 % (0-2.0); EOS % 3.3 % (0-4.5); LYMPH % 29.8 % (8-40); MONO % 6.6 % (3.8-10.2)
[2018-09-03] MEDS: ENOXAPARIN NA (PORCINE) 40 MG/0.4 ML DISP.SYRIN SQ SCH (10:15)
[2018-09-03] MEDS: LISINOPRIL 10 MG TABLET (FP) PO SCH (10:15)
--- NOTE | 2018-09-03 12:28 | PN ---
Progress Note (short form) - Note Progress Note: Subjective: The patient was seen at the bedside, he reports he has been told in the past that he has borderline diabetes and has been put on strict diets which he followed, lost weight, and then would go off the diet and gain the weight back. He reports in [facility], he noted blurry vision, his blood sugar was taken at home by a family member and it was noted to be >500. He also reports numbness and tingling in his feet that he has had "for a long time". HgbA1c 9.9 Awaiting endocrine evaluation Current Medications Generic Name Dose Route Start Last Admin Trade Name Freq PRN Reason Stop Dose Admin Enoxaparin Sodium 40 mg 09/03/18 10:00 Lovenox - SQ DAILY PRIMO Sodium Chloride 1,000 mls @ 100 mls/hr 09/02/18 16:45 09/02/18 17:00 Normal Saline - IV 100 mls/hr ASDIR PRIMO Administration Insulin Aspart 1 vial 09/02/18 22:00 09/03/18 06:39 Novolog Vial Sliding Scale - SQ 6 units ACHS PRIMO Administration Protocol Lisinopril 10 mg 09/02/18 17:15 09/02/18 18:32 Prinivil PO 10 mg DAILY PRIMO Administration Objective: Vital Signs Period Temp Pulse Resp BP Sys/Sandy Pulse Ox Last 24 Hr 98.0 F-98.9 F 75-102 16-18 119-145/60-96 99-100 Physical Exam: General: NAD, A&Ox3 Lungs: CTA bilaterally Heart: RRR, S1S2 Abd: Soft, non-tender, non-distended. Normoactive bowel sounds Ext: Warm, well-perfused. No edema Neuro: No focal deficits CBCD WBC 6.4 K/mm3 (4.0-10.8) 09/03/18 06:15 RBC 5.03 M/mm3 (4.00-5.60) 09/03/18 06:15 Hgb 13.7 GM/dl (11.7-16.9) 09/03/18 06:15 Hct 41.2 % (35.4-49) D 09/03/18 06:15 MCV 81.8 fl (80-96) 09/03/18 06:15 MCHC 33.2 g/dl (32.0-35.9) 09/03/18 06:15 RDW 13.5 % (11.9-15.9) 09/03/18 06:15 Plt Count 183 K/MM3 (134-434) D 09/03/18 06:15 MPV 9.8 fl (7.5-11.1) 09/03/18 06:15 CMP Sodium 134 mmol/L (136-145) L 09/03/18 06:15 Potassium 3.7 mmol/L (3.5-5.1) 09/03/18 06:15 Chloride 104 mmol/L (98-107) 09/03/18 06:15 Carbon Dioxide 20 mmol/L (22-28) L 09/03/18 06:15 Anion Gap 10 MMOL/L (8-16) 09/03/18 06:15 BUN 13 mg/dl (7-18) 09/03/18 06:15 Creatinine 0.7 mg/dl (0.6-1.3) 09/03/18 06:15 Creat Clearance w eGFR > 60 (>60) 09/03/18 06:15 Random Glucose 254 mg/dl (74-106) H 09/03/18 06:15 Calcium 8.3 mg/dl (8.4-10.2) L 09/03/18 06:15 Total Bilirubin 0.6 mg/dl (0.2-1.0) 09/03/18 06:15 AST 41 U/L (10-42) 09/03/18 06:15 ALT 70 U/L (10-40) H 09/03/18 06:15 Alkaline Phosphatase 102 U/L (32-92) H D 09/03/18 06:15 Total Protein 5.5 g/dl (6.4-8.3) L 09/03/18 06:15 Albumin 3.1 g/dl (3.5-5.0) L 09/03/18 06:15 Laboratory Tests 09/02/18 14:42 Hemoglobin A1c % 9.9 H Assessment: This is a 33 year old male with PMHx of HTN, arthritis, who presented to the ED with newly diagnosed diabetes (diagnosed in [facility]). Plan: 1) Newly diagnosed DM - HgbA1c 9.9 - BGM ACHS - ISS ACHS - Long discussion with patient and about diabetic teaching, diet, importance of monitoring feet (has neuropathy) - Outpatient follow-up with ophtho given blurred vision (patient reports is improving) - F/u endocrine consult for further recommendations regarding discharge medications: po vs. insulin 2) HTN - Continue Lisinopril, BP well controlled 3) Onychomycosis - F/u podiatry consult 4) F/E/N: - Monitor electrolytes - Diabetic diet 5) Prophylaxis: - OOB ambulating - Lovenox 40mg sq daily 6) Dispo: - Once evaluated by endocrinology CODE STATUS: FULL CODE Visit type - Emergency Visit Emergency Visit: Yes ED Registration Date: 09/02/18 Care time: The patient presented to the Emergency Department on the above date and was hospitalized for further evaluation of their emergent condition. - New Patient This patient is new to me today: Yes Date on this admission: 09/03/18 - Critical Care Critical Care patient: No
--- NOTE | 2018-09-03 12:33 | CONSULT ---
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 His sugar was in the 500 range. It was suggested patient fly back to [place] and go to directly to the hospital. Patient denies fevers, sweats, chills. He has some nausea, no vomiting. No diarrhea. He continues to have increased thirst , urination, and blurry vision. Pt had lost about 30 lbs when he was diagnosed as borderline diabetes in November. He however gained all of the weight over the months since. Has family h/o DM in his father. ER course was notable for Glucose of 388, negative serum acetone, A1c of 9.9 and AG 12 with CO2 of 21. - History Source History Provided By: Patient, Medical Record - Past Medical History Endocrine: Yes: Other (IGT) - Alcohol/Substance Use Hx Alcohol Use: No - Smoking History Smoking history: Never smoked Have you smoked in the past 12 months: No Aproximately how many cigarettes per day: 6 If you are a former smoker, when did you quit?: 8 Home Medications - Allergies Allergies/Adverse Reactions: Allergies Allergy/AdvReac Type Severity Reaction Status Date / Time Penicillins Allergy Severe Difficulty Verified 09/02/18 12:41 Breathing - Home Medications Home Medications: Ambulatory Orders NK [No Known Home Medication] 09/02/18 Family Disease History - Family Disease History Family Disease History: Diabetes: Father Review of Systems - Review of Systems Constitutional: reports: No Symptoms Eyes: reports: Blurred Vision HENT: reports: No Symptoms Neck: reports: No Symptoms Cardiovascular: reports: No Symptoms Respiratory: reports: No Symptoms Gastrointestinal: reports: No Symptoms Genitourinary: reports: Other (Polyuria, polydipsia) Musculoskeletal: reports: No Symptoms Neurological: reports: No Symptoms Endocrine: reports: No Symptoms Physical Exam Vital Signs: Vital Signs Temperature 98.0 F 09/03/18 06:47 Pulse Rate 75 09/03/18 06:47 Respiratory Rate 18 09/03/18 06:47 Blood Pressure 119/60 09/03/18 06:47 O2 Sat by Pulse Oximetry (%) 100 09/03/18 06:47 Constitutional: Yes: No Distress, Calm Eyes: Yes: Conjunctiva Clear, EOM Intact HENT: Yes: Atraumatic, Normocephalic Neck: Yes: Supple, Trachea Midline Cardiovascular: Yes: Regular Rate and Rhythm Respiratory: Yes: Regular, CTA Bilaterally Gastrointestinal: Yes: Normal Bowel Sounds Musculoskeletal: Yes: WNL Extremities: Yes: WNL Edema: No Neurological: Yes: Alert, Oriented Labs: CBC, BMP 09/03/18 06:15 09/03/18 06:15 Assessment/Plan AP: T2DM: New onset Diet exercise discussed 1200 to 1500 Kcal diet No sugary drinks including fruit juices and sodas Exercise at least 30 mins per day Nutrition consult BGM QACHS Novolog SS coverage Start Levemir 12 units stat and daily Start Metformin 500mg BID, side effects including N/V, diarrhoea discussed. Psoariasis Elevated LFTS ? Fatty liver HTN Will F/U
[2018-09-03] MEDS ORDERED: INSULIN (LEVEMIR) 100 UNITS/ML UNITS SQ ONE (12:39)
[2018-09-03] MEDS: metFORMIN HCL 500 MG TABLET (FP) PO SCH (16:45)
[2018-09-03] MEDS: SODIUM CHLORIDE 1,000 ML IV SCH (16:50)
[2018-09-03] MEDS ORDERED: INSULIN SLIDING SCALE (NOVOLOG) 1 VIAL SQ SCH (22:00)
[2018-09-04] MEDS: metFORMIN HCL 500 MG TABLET (FP) PO SCH ×2 (06:14→17:40)
[2018-09-04] MEDS ORDERED: INSULIN (LEVEMIR) 100 UNITS/ML UNITS SQ SCH (07:00)
[2018-09-04] MEDS: INSULIN SLIDING SCALE (NOVOLOG) 1 VIAL SQ SCH ×3 (07:04→17:18)
[2018-09-04 07:50] LABS: ALK PHOS 94 U/L (32-92); ANION GAP 9 MMOL/L (8-16); BILIRUBIN,TOTAL 0.4 mg/dl (0.2-1.0); BLOOD UREA NITROGEN 9 mg/dl (7-18); CALCIUM 8.6 mg/dl (8.4-10.2); CHLORIDE 102 mmol/L (98-107); CO2 23 mmol/L (22-28); CREATININE 0.8 mg/dl (0.6-1.3); GLUCOSE,RANDOM 244 mg/dl (74-106); POTASSIUM 3.7 mmol/L (3.5-5.1); SGOT/AST 41 U/L (10-42); SGPT/ALT 74 U/L (10-40); SODIUM 134 mmol/L (136-145); TOT PROT 5.4 g/dl (6.4-8.3)
[2018-09-04] MEDS: ENOXAPARIN NA (PORCINE) 40 MG/0.4 ML DISP.SYRIN SQ SCH (09:17)
[2018-09-04] MEDS: LISINOPRIL 10 MG TABLET (FP) PO SCH (09:21)
--- NOTE | 2018-09-04 09:56 | EKG ---
Test Reason : Blood Pressure : / mmHG Vent. Rate : 072 BPM Atrial Rate : 072 BPM P-R Int : 162 ms QRS Dur : 088 ms QT Int : 376 ms P-R-T Axes : 031 058 005 degrees QTc Int : 411 ms NORMAL SINUS RHYTHM NONSPECIFIC ST AND T WAVE ABNORMALITY WHEN COMPARED WITH ECG OF 22-DEC-2017 21:13, LIKELY NO SIGNIFICANT CHANGES WERE SEEN Confirmed by EMELY MENDOZA MD ([id number]) on 09/04/2018 9:56:11 AM Referred By: FATMATA CARNES Confirmed By:EMELY MENDOZA MD
--- NOTE | 2018-09-04 11:42 | PN ---
Progress Note (short form) - Note Progress Note: Feels good Denies any complaints Vital Signs Period Temp Pulse Resp BP Sys/Sandy Pulse Ox Last 24 Hr 97.9 F-99.0 F 66-74 18-20 113-136/53-68 100-100 PE: AOx3 Neck: Supple, No JVD HEENT: EOMI Lungs: CTA CVS: S1S2 Abd: Benign EXt: No edema Neuro: No focal deficit CMP Sodium 134 mmol/L (136-145) L 09/04/18 07:00 Potassium 3.7 mmol/L (3.5-5.1) 09/04/18 07:00 Chloride 102 mmol/L (98-107) 09/04/18 07:00 Carbon Dioxide 23 mmol/L (22-28) 09/04/18 07:00 Anion Gap 9 MMOL/L (8-16) 09/04/18 07:00 BUN 9 mg/dl (7-18) 09/04/18 07:00 Creatinine 0.8 mg/dl (0.6-1.3) 09/04/18 07:00 Creat Clearance w eGFR > 60 (>60) 09/04/18 07:00 POC Glucometer 205 UNITS (80-120) 09/04/18 06:16 Random Glucose 244 mg/dl (74-106) H 09/04/18 07:00 Hemoglobin A1c % 9.9 % (4.2-6.3) H 09/02/18 14:42 Calcium 8.6 mg/dl (8.4-10.2) 09/04/18 07:00 Phosphorus 3.3 mg/dl (2.5-4.6) 09/03/18 06:15 Magnesium 1.8 mg/dL (1.8-2.4) 09/03/18 06:15 Total Bilirubin 0.4 mg/dl (0.2-1.0) 09/04/18 07:00 AST 41 U/L (10-42) 09/04/18 07:00 ALT 74 U/L (10-40) H 09/04/18 07:00 Alkaline Phosphatase 94 U/L (32-92) H 09/04/18 07:00 Total Protein 5.4 g/dl (6.4-8.3) L 09/04/18 07:00 Albumin 3.0 g/dl (3.5-5.0) L 09/04/18 07:00 Lipase 225 U/L (73-393) 09/02/18 14:50 Current Medications Generic Name Dose Route Start Last Admin Trade Name Denisse PRN Reason Stop Dose Admin Enoxaparin Sodium 40 mg 09/03/18 10:00 09/04/18 09:17 Lovenox - SQ 40 mg DAILY PRIMO Administration Insulin Aspart 1 vial 09/03/18 22:00 09/03/18 21:42 Novolog Vial Sliding Scale - SQ 4 units HS PRIMO Administration Protocol Insulin Aspart 1 vial 09/03/18 16:30 09/04/18 07:04 Novolog Vial Sliding Scale - SQ 4 units TIDAC PRIMO Administration Protocol Insulin Detemir 12 units 09/04/18 07:00 09/04/18 06:14 Levemir Vial SQ 12 units DAILY@0700 PRIMO Administration Lisinopril 10 mg 09/02/18 17:15 09/04/18 09:21 Prinivil PO 10 mg DAILY PRIMO Administration Metformin HCl 500 mg 09/03/18 16:30 09/04/18 06:14 Glucophage - PO 500 mg BID@0700,1630 PRIMO Administration AP: T2DM: New onset Diet exercise discussed again 1200 to 1500 Kcal diet No sugary drinks including fruit juices and sodas Exercise at least 30 mins per day Nutrition consult BGM QACHS Novolog SS coverage Levemir 12 units stat and daily Metformin 500mg BID, Add Glipizide 5 mg Half tab BID 15 mins premeals Teach pt to self inject Inulin and self monitor blood sugar Pt may be discharged on current antidiabetic meds to be followed up in office in one week. Psoariasis Elevated LFTS ? Fatty liver HTN
--- NOTE | 2018-09-04 12:15 | DS ---
Physical Exam: SUBJECTIVE: Patient seen and examined OBJECTIVE: Vital Signs Period Temp Pulse Resp BP Sys/Sandy Pulse Ox Last 24 Hr 97.9 F-99.0 F 66-74 18-20 113-136/53-68 100-100 PHYSICAL EXAM GENERAL: The patient is awake, alert, and fully oriented, in no acute distress. HEAD: Normal with no signs of trauma. EYES: PERRL, extraocular movements intact, sclera anicteric, conjunctiva clear. ENT: Ears normal, nares patent, oropharynx clear without exudates, moist mucous membranes. NECK: Trachea midline, full range of motion, supple. LUNGS: Breath sounds equal, clear to auscultation bilaterally, no wheezes, no crackles, no accessory muscle use. HEART: Regular rate and rhythm, S1, S2 without murmur, rub or gallop. ABDOMEN: Soft, nontender, nondistended, normoactive bowel sounds, no guarding, no rebound, no hepatosplenomegaly, no masses. EXTREMITIES: 2+ pulses, warm, well-perfused, no edema. NEUROLOGICAL: Cranial nerves II through XII grossly intact. Normal speech, gait not observed. PSYCH: Normal mood, normal affect. SKIN: Warm, dry, normal turgor, no rashes or lesions noted. LABS Laboratory Results - last 24 hr 09/03/18 09/03/18 09/04/18 16:33 21:34 06:16 Sodium Potassium Chloride Carbon Dioxide Anion Gap BUN Creatinine Creat Clearance w eGFR POC Glucometer 269 278 205 Random Glucose Calcium Total Bilirubin AST ALT Alkaline Phosphatase Total Protein Albumin 09/04/18 09/04/18 07:00 11:19 Sodium 134 L Potassium 3.7 Chloride 102 Carbon Dioxide 23 Anion Gap 9 BUN 9 Creatinine 0.8 Creat Clearance w eGFR > 60 POC Glucometer 320 Random Glucose 244 H Calcium 8.6 Total Bilirubin 0.4 AST 41 ALT 74 H Alkaline Phosphatase 94 H Total Protein 5.4 L Albumin 3.0 L HOSPITAL COURSE: Date of Admission:09/02/18 Date of Discharge: 09/04/18 Pre hospital course 33 year-old male with a PMH significant for HTN and arthritis. Recently arrived from [facility] where he was for [address] in [facility] patient experienced symptoms of blurry vision, polydipsia, and polyuria x 2 weeks. He was evaluated by a doctor in [facility] yesterday who said his sugar was in the 400 range. It was suggested patient fly back to [place] and go to directly to the hospital. Patient denies fevers, sweats, chills. He has some nausea, no vomiting. No diarrhea. He continues to have increased thirst, urination, and blurry vision. ER course was notable for: (1) Glucose 388; Na 133 corrected (2) UA: 2+ protein, 2+ glucose, 4+ ketones (3) Serum acetone negative (4) NS x 2L; Novolog 6U x 1; AG 12-->9 Subsequent hospital course Newly diagnosed Type II DM --HgbA1c 9.9 --seen and evaluated by Dr. Kingston, labor/excavator with the following plan * Diet exercise * 1200 to 1500 Kcal diet * No sugary drinks including fruit juices and sodas * Exercise at least 30 mins per day * Nutrition consult * BGM QACHS * Novolog SS coverage * Levemir 12 units stat and daily * Metformin 500mg BID * Add Glipizide 5 mg Half tab BID 15 mins premeals * Teach pt to self inject Inulin and self monitor blood sugar * Pt may be discharged on current antidiabetic meds to be followed up in office in one week. Hypertension --significant improvement in BP with lisinopril Onychomycosis --outpatient followup Minutes to complete discharge: 35 Discharge Summary Reason For Visit: HYPERGLYCEMIA, UNSPECIFIED Current Active Problems Diabetes mellitus (Acute) Hyperglycemia (Acute) - Instructions - Home Medications Comprehensive Discharge Medication List: Ambulatory Orders NK [No Known Home Medication] 09/02/18 This patient is new to me today: No Emergency Visit: Yes ED Registration Date: 09/02/18 Care time: The patient presented to the Emergency Department on the above date and was hospitalized for further evaluation of their emergent condition. Critical Care patient: No - Discharge Referral Referred to [facility] No
[2018-09-04 14:57] VITALS: BP 139/69; PULSE 70; TEMP 98.8
[2018-09-04] MEDS ORDERED: glipiZIDE 5 MG TABLET (FP) PO SCH (16:30)
== END 2018-09-04 17:54 | disposition home or self-care (01) | DRG 420 ==
LOC: FER 12:20 → FM/S 14:38
PROVIDERS: ADMIT Internal Medicine; ATTEND Nurse Practitioner Acute Care
DX: E11.65 Type 2 diabetes mellitus with hyperglycemia (principal); E11.40 Type 2 diabetes mellitus with diabetic neuropathy, unspecified; I10 Essential (primary) hypertension; B35.1 Tinea unguium; L40.9 Psoriasis, unspecified
CPT/HCPCS: 36415; 71046-TC-FY; 76705-TC; 80048; 80053; 80307; 81003; 81015; 82009; 82803; 82962; 83036; 83690; 83735; 84100; 85025; 87086; 93005; 99285-25; J7030

== ENCOUNTER 2020-07-27 10:20 | Emergency (ER) | payer SELFPAY ==
[2020-07-27 10:28] VITALS: BP 157/94; PULSE 84; TEMP 98.7; BMI 32.7
[2020-07-27] MEDS ORDERED: LACTATED RINGERS SOLUTION 1000 ML INFUS.BAG IV ONE (11:15)
[2020-07-27] MEDS ORDERED: SODIUM CHLORIDE 1,000 ML IV STA (11:28)
[2020-07-27 11:34] LABS: ALBUMIN 4.4 g/dl (3.4-5.0); BILIRUBIN,TOTAL 1.1 mg/dl (0.2-1); CALCIUM 9.3 mg/dl (8.5-10); CREATININE 0.9 mg/dl (0.55-1.3); POTASSIUM 4.2 mmol/L (3.5-5.1); TOT PROT 7.3 g/dl (6.4-8.2)
[2020-07-27 11:43] LABS: EPITHELIAL CELLS RARE /hpf
[2020-07-27 12:35] LABS: HEMATOCRIT 48.3 % (35.4-49); HEMOGLOBIN 16.6 GM/dL (11.7-16.9); MCH 29.2 pg (25.7-33.7); MCHC 34.3 g/dl (32.0-35.9); MEAN CELL VOLUME 85.2 fl (80-96); MEAN PLT VOLUME 9.7 fl (7.5-11.1); PLATELET COUNT 198 K/MM3 (134-434); RBC 5.67 M/mm3 (4.00-5.60); WHITE BLOOD COUNT 8.4 K/mm3 (4.0-10.0)
[2020-07-27 12:42] LABS: VENOUS BASE EXCESS 3.3 mmol/L (-2-2); VENOUS O2 SATURATION 26.9 % (70-80); VENOUS PCO2 54.4 mmHg (38-52); VENOUS PH 7.365 (7.310-7.410)
== END 2020-07-27 13:15 | disposition home or self-care (01) ==
LOC: FER 10:20
PROC: 3E0337Z Introduction of Electrolytic and Water Balance Substance into Peripheral Vein, Percutaneous Approach (ICD-10-PCS; principal; 2020-07-27)
DX: E11.65 Type 2 diabetes mellitus with hyperglycemia (principal)
CPT/HCPCS: 36415; 80053; 81003; 81015; 82010; 82803; 82962; 85027; 99284-25

== ENCOUNTER 2020-08-02 20:30 | Emergency (ER) | payer SELFPAY ==
[2020-08-02 20:55] VITALS: BP 158/85; PULSE 80; TEMP 99.3; BMI 30.2
== END 2020-08-02 21:27 | disposition home or self-care (01) ==
LOC: FER 20:30
DX: I10 Essential (primary) hypertension (principal)
CPT/HCPCS: 93005; 99284-25

== ENCOUNTER 2023-12-02 16:35 | Emergency (ER) | payer OTHER ==
[2023-12-02 16:47] VITALS: BP 127/78; PULSE 82; RESP 18; TEMP 98.3; BMI 30.5
[2023-12-02] MEDS ORDERED: FLUORESCEIN NA 1 EA STRIP ONE (17:44)
[2023-12-02] MEDS ORDERED: TETRACAINE 0.5% OPHTH SOLN 2 ML BOTTLE ONE (17:45)
[2023-12-02] MEDS: FLUORESCEIN NA 1 EA STRIP OD ONE (17:53)
[2023-12-02] MEDS: TETRACAINE 0.5% OPHTH SOLN 2 ML BOTTLE OD ONE (17:54)
== END 2023-12-02 18:03 | disposition home or self-care (01) ==
LOC: JERFT 16:35
DX: S05.01XA Injury of conjunctiva and corneal abrasion without foreign body, right eye, initial encounter (principal); X58.XXXA Exposure to other specified factors, initial encounter; Y93.H3 Activity, building and construction
CPT/HCPCS: 99283-25